=== PATIENT | male | born 2000 | race Caucasian/White ===

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

== ENCOUNTER 2023-06-02 04:09 | Emergency (ER) | payer BC, SELFPAY ==
[2023-06-02 04:13] VITALS: BP 120/90; PULSE 63; RESP 16; TEMP 36.7; O2SAT 99
--- NOTE | 2023-06-02 04:15 | DI.CT_ITS ---
Exam(s) CT HEAD WO EXAM: CT HEAD WO CLINICAL HISTORY: fall, pain. TECHNIQUE: Imaging Protocol: Axial computed tomography images with coronal and sagittal reformatted images were created and reviewed COMPARISON: No exams were available for comparison FINDINGS: There are no skull fractures. There is no fluid in the visualized paranasal sinuses. There is no evidence of intracranial hemorrhage, mass effect, or shift of midline structures. The ve ntricles are not enlarged or shifted and there is no blood within the ventricular system nor within t he basal cisterns. There is a prominent arachnoid cyst in the left middle cranial fossa anterior to the left temporal lo be. There is also a retro cerebellar arachnoid cyst in the posterior fossa. IMPRESSION: No acute intracranial findings on this noninfused CT scan of the brain. 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 No evidence of intracranial hemorrhage, intra nor extra-axial RADIATION DOSE DELIVERED: 687.79mGy.cm Total DLP DATA REPOSITORY: All CT scans at this facility are submitted to the National Radiology Data Registry (NRDR) Dose Index Registry (DIR) with the [employer] (ACR). RADIATION OPTIMIZATION: All CT scans at this facility use at least one of these dose optimization te chniques: automated exposure control; mA and/or kV adjustment per patient size (includes targeted exa ms where dose is matched to clinical indication); or iterative reconstruction.
--- NOTE | 2023-06-02 04:25 | ED.GENADUL_ITS ---
Discharge Plan Disposition Patient Disposition: Home Condition: Stable Discharge Details Clinical Impression: Blunt head trauma Primary Care Provider: Jose Ruiz ED Provider: Abdulaziz Torrez Home Meds and New Rx's Prescriptions: New ondansetron 4 mg tablet,disintegrating 4 mg PO Q8H PRN (Reason: nausea and vomiting) Qty: 30 0RF Continued fluoxetine 20 mg tablet 20 mg PO DAILY Qty: 60 0RF Discharge Instructions Additional Instructions: Your cat scan did not show any concerning findings, you do have 2 arachnoid cysts which are incidental findings and you've likely had them most of your life If not improving this week follow up with your primary care provider you can take 1000mg tylenol and 600mg ibuprofen every 6 hours as needed for pain if you feel more ill, have severe worsening pain or new symptoms such as difficulty breathing return to the emergency department Stand Alone Forms: Work Release Medical Decision Making 23 yo male with hx of adhd, anxiety, who comes in with head pain and nausea s/p fall yesterday. HE states around noon yesterday he smoked a pre roll of marijuana, stood up and then fell over striking his head on the ground, thinks he may have had loc from hitting his head. He came in now for increasing head pain. Denies vomiting, no other pain such as chest pain, abd pain, neck or back pain. HE is caox4 on arrival. NO signs of trauma to the head, perrl, eomi, no midline c spine tenderness. Suspect concussion but will obtain ct head to evaluate for tbi. pt stable feels better with tylenol, ct without acute findings, does have 2 arachnoid cysts which I informed him of and are incidental findings. Suspect concussion, advised to f/u with pcp this week especially if he's not improving and return precautions given Differential Diagnosis Differential Diagnosis: concussion, tbi Imaging Data Radiologic Study: Attestation: I personally reviewed and interpreted this imaging study as follows: Imaging: CT Scan Radiologist's impression: no acute findings HPI General Mode of arrival: ambulatory . Date/Time Provider Initiated Documentation: 06/02/23 04:11 . Limitations to Documentation: no limitations . Information obtained by: patient . History of Present Illness 23 year old M presents to the emergency department with the chief complaint of head pain s/p fall, described as moderate, Patient started experiencing this hour(s) (16) and it has been constant. No relieving factors improve symptom(s), No exacerbating factors reported . Patient did receive the following treatments prior to arrival, none Related Data Home Medications Medication Instructions Recorded Confirmed fluoxetine 20 mg tablet 20 mg PO DAILY #60 tabs 05/22/23 06/02/23 ondansetron 4 mg disintegrating 4 mg PO Q8H PRN nausea and 06/02/23 tablet vomiting #30 tabs Previous Rx's Medication Instructions Recorded fluoxetine 20 mg tablet 20 mg PO DAILY #60 tabs 05/22/23 ondansetron 4 mg disintegrating 4 mg PO Q8H PRN nausea and 06/02/23 tablet vomiting #30 tabs Allergies Allergy/AdvReac Type Severity Reaction Status Date / Time No Known Allergies Allergy Verified 06/02/23 04:22 General Stated Complaint: Fall/Non TraumaCriteria LILIANA: 3 Review of Systems All systems reviewed & are unremarkable except as noted in HPI and below Constitutional Constitutional: Denies chills, Denies fever(s) and Denies weakness Cardiovascular Cardiovascular: Denies chest pain and Denies dyspnea Respiratory Respiratory: Denies cough and Denies dyspnea Gastrointestinal Gastrointestinal: Denies abdominal pain, Denies nausea and Denies vomiting Integumentary/Breasts Skin/Breast: Denies rash Neurologic Neurologic: Denies weakness PFSH All Active Problems (Updated 06/02/23 @ 05:23 by Abdulaziz Torrez MD) Blunt head trauma (Acute) Anxiety (Chronic) History of depression (Acute) Marijuana use (Chronic) Daily use- multiple times a day- smokes, dabs, and takes edibles Depression (Chronic) Prozac 40 mg daily Had evaluation with psychiatry in 2019- dx with depression, anxiety, and ADHD Visual disorder (Chronic) Wears glasses ADHD (attention deficit hyperactivity disorder), combined type (Chronic) No medication Generalized anxiety disorder (Chronic) Surgical History Circumcision KNEE SURGERY Family History (Updated 08/29/22 @ 10:05 by Fifi Montes De Oca) Mother Essential hypertension Depression Father Essential hypertension Mental disorder Other Mental disorder Neoplasm GRANDPARENT Heart disease Hyperlipidemia Neoplasm Maternal Uncle Substance abuse Paternal Grandfather Diabetes Social History (Updated 08/29/22 @ 10:01 by Fifi Montes De Oca) Smoking/Tobacco Use Status: Never Smoking risk assessment performed?: Yes Alcohol Intake: current Alcohol Intake frequency: a few times a month Drug use: Occasionally Substance use type: marijuana Adopted: No Caregiver/Support person: No Foster care: No Household members: family Housing: house Number of Children: 0 Communication Needs: Corrective Lenses Education Level: high school Do you need help understanding health information?: Never 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 Pets and animals: Yes Pets and animals: dog(s) Sexually active: Yes Do you think of yourself as: straight/heterosexual Current gender identity: male What is your relationship status?: never How often do you talk on the phone with friends or family?: three or more times per week How often do you get together with friends or relatives?: three or more times per week Do you belong to any clubs or organized social groups?: no Panel score (0-1 are the most socially isolated patients): 1 What type of physical activity do you participate in: weight lifting Duration: 60-90 minutes/day Frequency: daily Ayesha/Latter-Day: Lutheran Special ayesha needs: No Seatbelt use: always Helmet use: Yes Helmet use: always Drive intox or ride w/intox tower truck driver: No Do you feel safe at home: Yes Do you feel safe in your relationship?: Yes Additional Social history: Boy lives with step mom Zoila, father Kelby, half sister Mary age 14, half brother Nagi age 6, and half sister Jaja age 4. Mother Jana Hong and half brother Tripp Rivera age 16 are in his life as well. Exam Const General: no acute distress Orientation: alert HENMT Head: normal to inspection and no palpable skull fracture Ears: external ears normal and TM's normal bilaterally General nose exam: external nose normal Mouth: moist mucous membranes Eyes General: appearance normal, both eyes and all related structures Neck Neck: normal visual inspection Resp Effort & Inspection: normal respiratory effort and able to speak in complete sentences Auscultation: clear to auscultation bilaterally Cardio Rate: regular rate Heart Sounds: no murmurs GI Palpation: soft and nontender Skin General skin exam: no rashes or lesions noted Neuro General: patient alert and patient oriented x3 Extrem General: normal to inspection Psych Mental Status: mental status grossly normal Course Vital Signs Vital signs: Vital Signs Temperature 36.7 C 06/02/23 04:13 Pulse 63 06/02/23 04:13 Respiratory Rate 16 06/02/23 04:13 Blood Pressure 120/90 06/02/23 04:13 Pulse Oximetry 99 06/02/23 04:13 Temperature 36.7 C 06/02/23 04:13 Pulse 63 06/02/23 04:13 Respiratory Rate 16 06/02/23 04:13 Respiratory Effort Normal 06/02/23 04:18 Blood Pressure 120/90 06/02/23 04:13 Blood Pressure Position Sitting 06/02/23 04:13 Pulse Oximetry 99 06/02/23 04:13 Oxygen Delivery Method Room Air 06/02/23 04:13 Oxygen Flow Rate 0 06/02/23 04:13 Pain Level 7 06/02/23 04:13 PAWSS Have you Been Recently Intoxicated or Drunk Within the Last 30 days?: Yes Have you Ever Experienced Previous Episodes of Alcohol Withdrawal?: No Have you ever Experienced Withdrawal Seizures?: No Have you ever Experienced Delirium Tremens(DT)s?: No Have you ever undergone Alcohol Rehabilitation Treatment (i.e, inpt ot outpatient treatment programs)?: No Have you ever Experienced Blackouts?: No Have you ever Combined Alcohol with other Downers within the last 90 days?: No Have you ever Combined Alcohol with any other Substance of Abuse during the last 90 days?: Yes Positive Blood Alcohol level on Presentation? [PCS.BAL]: No Evidence of Increased Autonomic Activity (i.e. HR>120, tremor, sweating, agitation, nausea)?: No Result: 3
[2023-06-02] MEDS: Acetaminophen 500 MG TAB 1000 MG PO (04:27)
--- NOTE | 2023-06-02 04:58 | DI.VRAD_ITS ---
PROCEDURE INFORMATION: Exam: CT Head Without Contrast Exam date and time: 06/02/2023 4:39 AM Age: 23 years old Clinical indication: Injury or trauma; Blunt trauma (contusions or hematomas); With loss of consciousness; Not specified; Injury date: 06/01/23; Injury details: Fall, pain TECHNIQUE: Imaging protocol: Computed tomography of the head without contrast. Radiation optimization: All CT scans at this facility use at least one of these dose optimization techniques: automated exposure control; mA and/or kV adjustment per patient size (includes targeted exams where dose is matched to clinical indication); or iterative reconstruction. COMPARISON: No relevant prior studies available. FINDINGS: Brain: Large left temporal arachnoid cyst. Small posterior fossa arachnoid cyst. No brain edema. No intracranial hemorrhage. Cerebral ventricles: No ventriculomegaly. Paranasal sinuses: Visualized sinuses are unremarkable. No fluid levels. Mastoid air cells: Unremarkable. Bones/joints: Unremarkable. No acute fracture. Soft tissues: Unremarkable. IMPRESSION: No acute brain findings. Dictated and Authenticated by: Juvencio Reyes MD. Ordering:MILIND Cintron MD
== END 2023-06-02 05:27 | disposition home or self-care (01) ==
PROVIDERS: Emergency Provider Emergency Medicine; PCP Family Medicine
DX: S09.90XA Unspecified injury of head, initial encounter (principal); G93.0 Cerebral cysts; R11.2 Nausea with vomiting, unspecified; R42 Dizziness and giddiness; W18.39XA Other fall on same level, initial encounter
CPT/HCPCS: 99284; 70450; 99283

== ENCOUNTER 2025-03-18 17:10 | Outpatient (CLI) | payer BC, SELFPAY ==
--- NOTE | 2025-03-18 17:41 | DI.RAD_ITS ---
Exam(s) XR KNEE LT 4V AP,LAT,MADDIE,PAT EXAM: XR KNEE LT 4V AP,LAT,MADDIE,PAT CLINICAL HISTORY: Knee pain, left M25.562. TECHNIQUE: 2D digital imaging was performed. COMPARISON: No exams were available for comparison FINDINGS: Four views No evidence of fracture but there does appear to be a joint effusion. No joint space narrowing. No osteochondral defects. Bone density normal. No osseous lesions. Patella and retropatellar space un remarkable. No patellar displacement. IMPRESSION: No acute osseous findings but there does appear to be a joint effusion which may signify Uche signific ant internal derangement. Close follow-up recommended DATA REPOSITORY: RADIATION DOSE DELIVERED:
--- NOTE | 2025-03-18 18:09 | DI.VRAD_ITS ---
PROCEDURE INFORMATION: Exam: XR Left Knee Exam date and time: 03/18/2025 5:35 PM Age: 24 years old Clinical indication: Pain; Knee; Left TECHNIQUE: Imaging protocol: Radiologic exam of the left knee. Views: 4 or more views. COMPARISON: No relevant prior studies available. FINDINGS: Bones/joints: No fracture or dislocation. Knee effusion. Soft tissues: Unremarkable. IMPRESSION: Knee effusion. No evidence for acute bony injury. If clinical symptoms persist recommend followup film in 7-10 days. Dictated and Authenticated by: Nohemi Madera MD. Orderin Jesi Mendoza MD
== END 2025-03-18 17:30 ==
LOC: DI 17:11
PROVIDERS: PCP Family Medicine; Visit Provider Physician Assistant
DX: M25.562 Pain in left knee (principal)
CPT/HCPCS: 73564